=== PATIENT | female | born 1945 | race Caucasian/White ===

== ENCOUNTER 2017-05-17 11:09 | Emergency (ER) | payer OTHER ==
[~2017-05-17] VITALS: Ht 149.9 cm; Wt 60.0 kg
[~2017-05-17 11:09] MED LIST: BIOT10TA PO; CINN500C13 PO; ESCI10TA PO; FENO160T PO; LEVO50TA4 PO; LISI10TA3 PO; LORA-373 PO; METF500T PO; METO25TA3 PO; MIRTA15 PO; NIFE30TA61 PO; OMEGCAP PO; VITA2000 PO
[2017-05-17 11:18] VITALS: BP 180/85; PULSE 57; RESP 15; TEMP 98.9; O2SAT 98
[2017-05-17 11:21] VITALS: BP 180/85; PULSE 59; RESP 16; O2SAT 96
--- NOTE | 2017-05-17 11:32 | PD ---
HPI Chief Complaint: Dizziness Time Seen by Provider: 11:23 Travel History International Travel<30 days: No Contact w/Intl Traveler<30days: No Traveled to known affect area: No History of Present Illness HPI 70 year-old female presents to the emergency department as a transfer from [place] for MRI of her brain. Patient has been having intermittent dizziness, sensation of room spinning over the last [address] imaging showed suspicious area or possible infarct with MRI recommended area patient denies any other focal deficits or weakness. She states she does get nauseous with the dizziness occurs. Reports remote CVA. She has no other symptoms to report at this time. PFSH Past Medical History Depression: Yes Cardiovascular Problems: Yes (HYPERTENSION) High Cholesterol: Yes Cerebrovascular Accident: Yes Diabetes: Yes Patient Takes Glucophage: Yes Diminished Hearing: No Hypertension: Yes Thyroid Disease: Yes (HYPOTHYROIDISM) Influenza Vaccination: No ?: Not Menopausal: Yes Past Surgical History Eye Surgery: Yes (CATARACT RIGHT ) Hysterectomy: Yes Other Surgery: Yes (BLADDER SLING; PARATHYROID REMOVED) Social History Alcohol Use: Yes (RARELY) Tobacco Use: No Substance Use: No Allergies-Medications (Allergen,Severity, Reaction): Coded Allergies: No Known Allergies (Unverified , 05/17/17) Reported Meds & Prescriptions Reported Meds & Active Scripts Active Meclizine (Meclizine HCl) 25 Mg Tab 25 Mg PO TID PRN Reported Atorvastatin (Atorvastatin Calcium) 20 Mg Tab 20 Mg PO HS [place]-3 Fish Oil/Vitamin (Fish Oil-Cholecalciferol) 1,000-1,000 Mg Cap 1 Cap PO DAILY Eql Cinnamon (Cinnamon) 500 Mg Cap 1,000 Mg PO DAILY Biotin 10 Mg Tab 10 Mg PO DAILY Vitamin D3 (Cholecalciferol) 2,000 Unit Cap 2,000 Units PO DAILY Lorazepam 0.5 Mg Tab 0.5 Mg PO DAILY PRN Metformin (Metformin HCl) 500 Mg Tab 500 Mg PO DAILY With a meal Escitalopram (Escitalopram Oxalate) 10 Mg Tab 10 Mg PO DAILY Metoprolol Tartrate 25 Mg Tab 12.5 Mg PO DAILY Nifedipine ER 24 HR (Nifedipine) 30 Mg Tab 30 Mg PO DAILY Lisinopril 10 Mg Tab 10 Mg PO DAILY Levothyroxine (Levothyroxine Sodium) 50 Mcg Tab 50 Mcg PO DAILY Review of Systems Except as stated in HPI: all other systems reviewed are Neg Physical Exam Narrative GENERAL: Well-nourished female patient, in no acute distress. SKIN: Focused skin assessment warm/dry. HEAD: Atraumatic. Normocephalic. Slight right sided facial paralysis most noted at the lateral lip EYES: Pupils equal and round. No scleral icterus. No injection or drainage. Pupils are equal and reactive. EOMI. ENT: No nasal bleeding or discharge. Mucous membranes pink and moist. NECK: Trachea midline. No JVD. CARDIOVASCULAR: Bradycardic rate and rhythm. No murmur appreciated. RESPIRATORY: No accessory muscle use. Clear to auscultation. Breath sounds equal bilaterally. GASTROINTESTINAL: Abdomen soft, non-tender, nondistended. Hepatic and splenic margins not palpable. MUSCULOSKELETAL: No obvious deformities. No clubbing. No cyanosis. No edema. 5+ strength equal bilateral extremities. NEUROLOGICAL: Awake and alert. No obvious cranial nerve deficits. Motor grossly within normal limits. Normal speech. PSYCHIATRIC: Appropriate mood and affect; insight and judgment normal. Data Data Last Documented VS Vital Signs Date Time Temp Pulse Resp B/P (MAP) Pulse Ox O2 Delivery O2 Flow Rate FiO2 05/17/17 15:15 05/17/17 14:39 54 16 97 Room Air 05/17/17 11:18 98.9 Orders Orders Mri Brain W/O Contrast (05/17/17 ) Lisinopril (Prinivil) (05/17/17 12:30) Metoprolol Tartrate (Lopressor) (05/17/17 12:30) MDM Medical Decision Making Medical Screen Exam Complete: Yes Emergency Medical Condition: Yes Medical Record Reviewed: Yes Differential Diagnosis CVA versus TIA versus vertigo versus near syncope Narrative Course 71-year-old female presents to emergency department for evaluation of suspicious finding on CT imaging. She appears well and without distress. She has no focal deficits or weakness. MRI has been ordered. Lab work was reviewed from without acute concern. Last Impressions Brain MRI 05/17/17 0000 Signed Impressions: Service Date/Time: Wednesday, May 17, 2017 13:35 - CONCLUSION: 1. No evidence of acute intracranial pathology. Chronic ischemic changes as above. Arnulfo Gleason MD Findings have been reviewed with the patient. She'll be discharged home at this time. Diagnosis Primary Impression: Dizziness Referrals: Neurologist Primary Care Physician Patient Instructions: Dizziness (ED), General Instructions Additional Instructions: Follow-up with a primary care provider Seek neurology and/or ear nose and throat evaluation if symptoms persist Return immediately with any acute worsening of symptoms Med/Other Pt SpecificInfo: Prescription(s) given Scripts Meclizine (Meclizine) 25 Mg Tab 25 MG PO TID Y for VERTIGO, #20 TAB 0 Refills Prov: Sera Manuel 05/17/17 Disposition: 01 DISCHARGE HOME Condition: Stable Sera Manuel May 17, 2017 11:32
[2017-05-17 12:05] VITALS: BP 187/84; PULSE 57; RESP 12; O2SAT 98
[2017-05-17] MEDS ORDERED: ATOR20TA15 PO (12:05)
[2017-05-17] MEDS ORDERED: METOPROLOL TARTRATE 25 MG TAB PO ONE (12:30)
[2017-05-17] MEDS ORDERED: LISINOPRIL 10 MG TAB PO ONE (12:30)
--- NOTE | 2017-05-17 14:38 | RADRPT ---
EXAM DATE/TIME: 05/17/2017 13:35 [facility] COMPARISON: No previous studies available for comparison. INDICATIONS : Dizziness. CVA. MEDICAL HISTORY : Diabetes mellitus type 2. Hypertension. SURGICAL HISTORY : Thyroidectomy. Cataract. ENCOUNTER: Subsequent ACUITY: 1 day PAIN SCORE: 0/10 LOCATION: head. TECHNIQUE: Multiplanar, multisequence MRI of the brain was performed without contrast. FINDINGS: MRI of the brain is performed in sagittal, axial and coronal planes. The craniocervical junction and midline structures are unremarkable. Diffusion weighted images demonstrate no abnormality. There is n o evidence of acute cortical infarction, acute hemorrhage, mass effect or midline shift is seen. Ther e is periventricular hyperintensity on the T2 weighted images consistent with small vessel vascular d isease significantly more than expected in a patient of this age. Posterior fossa structures are unre markable. CONCLUSION: 1. No evidence of acute intracranial pathology. Chronic ischemic changes as above. Arnulfo Gleason MD on May 17, 2017 at 14:35 Board Certified Radiologist. This report was verified electronically.
[2017-05-17 14:39] VITALS: BP 171/80; PULSE 54; RESP 16; O2SAT 97
[2017-05-17] MEDS ORDERED: MECL-62 PO (14:57)
== END 2017-05-17 15:16 | disposition home or self-care (01) ==
LOC: NEPD 11:09
DX: R42 Dizziness and giddiness (principal); I10 Essential (primary) hypertension; E78.00 Pure hypercholesterolemia, unspecified; E11.9 Type 2 diabetes mellitus without complications; E03.9 Hypothyroidism, unspecified; F32.9 Major depressive disorder, single episode, unspecified; Z86.73 Personal history of transient ischemic attack (TIA), and cerebral infarction without residual deficits; Z79.899 Other long term (current) drug therapy
CPT/HCPCS: 70450; 70551; 80048; 84484; 85025; 85610; 85730; 93005; 96374; 99285; J2405; 99281